=== PATIENT | male | born 1980 | race Caucasian/White ===

== ENCOUNTER 2016-11-08 08:22 | Emergency (ER) | payer OTHER, BC ==
[~2016-11-08] VITALS: Ht 180.3 cm; Wt 84.1 kg
[2016-11-08 08:25] VITALS: BP 134/99; PULSE 83; TEMP 98.2
[2016-11-08] MEDS ORDERED: XANAX 1MG1 MG PO (09:19)
[2016-11-08 09:20] LABS: BASO % 0.9 % (0.0-2.0); EOS # 0.2 (0.0-0.7); EOS % 3.3 % (0-4.0); GRAN # 2.8 (1.4-6.5); GRAN % 60.6 % (42.2-75.2); HEMATOCRIT 41.9 % (42.0-52.0); HEMOGLOBIN 14.6 g/dl (13.5-18.0); LYMPH # 1.2 (1.2-3.4); LYMPH % 25.5 % (20.0-51.0); MEAN CELL VOLUME 99 fl (80.0-100.0); MEAN CORPUSCULAR HEMOGLOBIN 34 pg (27.0-31.0); MEAN CORPUSCULAR HGB CONC 35 g/dl (33.0-37.0); MEAN PLATELET VOLUME 9.5 fl (7.4-10.4); MONO # 0.4 (0.1-0.6); MONO % 9.5 % (1.7-9.3); PLATELET COUNT 146 K/mm3 (130-400); RED BLOOD COUNT 4.24 M/mm3 (4.20-5.60); REDCELL DISTRIBUTION WIDTH-CV 11.9 % (11.5-14.5); WHITE BLOOD COUNT 4.6 K/mm3 (4.8-10.8)
[2016-11-08] MEDS ORDERED: KLONOPIN 1MG1 MG PO (09:20)
[2016-11-08] MEDS ORDERED: PERCOCET 325 MG1 TA3 PO (09:21)
[2016-11-08] MEDS ORDERED: CELEXA40 MG PO (09:23)
[2016-11-08] MEDS ORDERED: FOLIC ACID 40400 MCG PO (09:23)
[2016-11-08] MEDS ORDERED: INDERAL40 MG PO (09:23)
[2016-11-08 09:24] LABS: PROTHROMBIN TIME 11.5 SECONDS (9.7-12.8)
[2016-11-08] MEDS ORDERED: B-12 100 MCG PO (09:24)
[2016-11-08 09:27] LABS: PARTIAL THROMBOPLASTIN TIME 29.2 SECONDS (26.0-37.0)
[2016-11-08 09:28] LABS: ADJUSTED CALCIUM 9.6 mg/dL (8.4-10.2); ALBUMIN 4.8 gm/dL (3.5-5.0); BILIRUBIN,TOTAL 2.1 mg/dL (0.0-1.0); CALCIUM 10.2 mg/dL (8.4-10.2); CREATININE, serum 0.83 mg/dL (0.66-1.25); TOTAL PROTEIN 7.8 gm/dL (6.4-8.2)
== END 2016-11-08 11:25 | disposition home or self-care (01) ==
LOC: COL.ER 08:22
PROVIDERS: Emergency Medicine
DX: K64.5 Perianal venous thrombosis (principal); T14.8 Other injury of unspecified body region; Z87.81 Personal history of (healed) traumatic fracture
CPT/HCPCS: J1170; J7030; Q9967

== ENCOUNTER 2019-09-16 03:51 | Emergency (ER) | payer BC ==
[~2019-09-16] VITALS: Ht 180.3 cm; Wt 77.3 kg
[~2019-09-16 03:51] MED LIST: B-12 100 MCG PO; CELEXA40 MG PO; FOLIC ACID 40400 MCG PO; INDERAL40 MG PO; KLONOPIN 1MG1 MG PO; PERCOCET 325 MG1 TA3 PO; XANAX 1MG1 MG PO
[2019-09-16 05:18] VITALS: PULSE 70; TEMP 97.6
[2019-09-16 06:00] LABS: COLLECTION METHOD CLEAN CATCH
[2019-09-16 06:07] LABS: MUCOUS Present /lpf; PH 5 (5-8); SQUAMOUS EPITHELIAL None Seen /hpf; URINE APPEARANCE Clear; URINE BACTERIA None Seen /hpf; URINE BILIRUBIN Negative (NEGATIVE); URINE BLOOD Negative (NEGATIVE); URINE COLOR Yellow; URINE GLUCOSE Negative (NEGATIVE); URINE KETONE Negative (NEGATIVE); URINE LEUKOCYTE ESTERASE Negative (NEGATIVE); URINE NITRATE Negative (NEGATIVE); URINE PROTEIN(semi-quant) Negative (NEGATIVE); URINE RBC None Seen /hpf; URINE UROBILINOGEN Negative (NEGATIVE)
[2019-09-16 07:03] LABS: EOS # 0.2 (0.0-0.7); EOS % 4.1 % (0-4.0); GRAN # 2.4 (1.4-6.5); GRAN % 56.5 % (42.2-75.2); HEMATOCRIT 40.5 % (42.0-52.0); HEMOGLOBIN 13.3 g/dl (13.5-18.0); LYMPH # 1.2 (1.2-3.4); LYMPH % 28.9 % (20.0-51.0); MEAN CELL VOLUME 95 fl (80.0-100.0); MEAN CORPUSCULAR HEMOGLOBIN 31 pg (27.0-31.0); MEAN CORPUSCULAR HGB CONC 33 g/dl (33.0-37.0); MEAN PLATELET VOLUME 9.5 fl (7.4-10.4); MONO # 0.4 (0.1-0.6); MONO % 9.3 % (1.7-9.3); PLATELET COUNT 171 K/mm3 (130-400); RED BLOOD COUNT 4.28 M/mm3 (4.20-5.60); REDCELL DISTRIBUTION WIDTH-CV 14.8 % (11.5-14.5)
[2019-09-16 07:14] LABS: ALBUMIN 4.6 gm/dL (3.5-5.0); CALCIUM 9.5 mg/dL (8.4-10.2); CREATININE, serum 0.83 (0.66-1.25); MAGNESIUM 2.3 mg/dL (1.6-2.3); PHOSPHOROUS 3.5 mg/dL (2.5-4.5); POTASSIUM 3.8 mmol/L (3.4-5.0); TOTAL PROTEIN 7.4 gm/dL (6.4-8.2)
== END 2019-09-16 08:24 | disposition home or self-care (01) ==
LOC: COL.ER 03:51
PROVIDERS: Emergency Medicine
DX: R20.2 Paresthesia of skin (principal); G47.00 Insomnia, unspecified